=== PATIENT | female | born 1975 | race African-American/Black ===

== ENCOUNTER 2018-02-10 17:07 | Emergency (ER) | payer MEDICAID ==
[~2018-02-10] VITALS: Ht 162.6 cm; Wt 60.0 kg
[2018-02-10 19:20] LABS: CLARITY URINE CLEAR (CLEAR); COLOR URINE YELLOW (YELLOW); KETONES URINE NEGATIVE (NEGATIVE); LEUKOCYTE ESTERASE URINE NEGATIVE (NEGATIVE); NITRITE URINE NEGATIVE (NEGATIVE); OCCULT BLOOD URINE NEGATIVE (NEGATIVE); PH URINE 6.5 (4.5-8.0); PROTEIN URINE NEGATIVE (NEGATIVE); SPECIFIC GRAVITY URINE 1.004 (1.005-1.030); UROBILINOGEN URINE 0.2 E.U./dL (0.2-1.0)
[2018-02-10 19:43] LABS: *BARBITURATES SCREEN URINE NEGATIVE (NEGATIVE); *BENZODIAZEPINES SCREEN URINE NEGATIVE (NEGATIVE); *COCAINE SCREEN URINE NEGATIVE (NEGATIVE); METHADONE URINE SCREEN NEGATIVE (NEGATIVE); OPIATES URINE SCREEN NEGATIVE (NEGATIVE)
[2018-02-10 19:44] LABS: *AMPHETAMINES SCREEN URINE NEGATIVE (NEGATIVE); PHENCYCLIDINE URINE SCREEN NEGATIVE (NEGATIVE)
[2018-02-10 19:46] LABS: CANNABINOID URINE SCREEN PRESUMTIVE POSITIVE (NEGATIVE)
[2018-02-10] MEDS ORDERED: ALBUTEROL (0.083%) 2.5MG/3ML NEB HHN STA (20:13)
[2018-02-10 22:24] VITALS: BP 120/76
== END 2018-02-10 22:32 | disposition home or self-care (01) ==
LOC: ER 17:07
DX: R07.9 Chest pain, unspecified (principal); R06.2 Wheezing; M25.521 Pain in right elbow; K21.9 Gastro-esophageal reflux disease without esophagitis; F32.9 Major depressive disorder, single episode, unspecified; F17.210 Nicotine dependence, cigarettes, uncomplicated; Z79.899 Other long term (current) drug therapy; Z88.0 Allergy status to penicillin
CPT/HCPCS: 71045; 73080; 80305; 81003; 93005; 94640; 99285; 99406; J7611

== ENCOUNTER 2019-02-01 12:13 | Emergency (ER) | payer MEDICAID ==
[~2019-02-01] VITALS: Ht 165.1 cm; Wt 70.0 kg
[2019-02-01] MEDS ORDERED: IBUPROFEN 600MG TABLET PO ONE (13:30)
[2019-02-01 14:25] VITALS: BP 128/79
[2019-02-01] MEDS ORDERED: DIPHENHYDRAMINE 50MG/ML VIAL IM ONE (15:30)
[2019-02-01] MEDS ORDERED: LORAZEPAM 2MG/ML CPJ IM ONE (15:30)
[2019-02-01] MEDS ORDERED: HALOPERIDOL LACTATE 5MG/ML VIAL IM ONE (15:30)
== END 2019-02-01 17:00 | disposition home or self-care (01) ==
LOC: ER 12:13
DX: S40.021A Contusion of right upper arm, initial encounter (principal); Y35.813A Legal intervention involving manhandling, suspect injured, initial encounter; Y93.89 Activity, other specified; Y92.481 Parking lot as the place of occurrence of the external cause; F91.8 Other conduct disorders; R03.0 Elevated blood-pressure reading, without diagnosis of hypertension
CPT/HCPCS: 81025; 99285; J1200; J1630; J2060